=== PATIENT | female | born 1960 | race Caucasian/White ===

== ENCOUNTER 2019-08-10 08:25 | Outpatient (CLI) | payer OTHER ==
--- NOTE | 2019-08-10 11:57 | Diagnostic Imaging Report ---
PATIENT MR#: [id number] PATIENT PATIENT NAME: RUTH ORLANDO DATE OF : 1960 REFERRING PHYSICIAN: Leslie Butcher EXAM DATE: 08/10/2019 ACCESSION NUMBER: [id number] EXAM DESCRIPTION: CHEST 2VIEW HISTORY: COUGH AND SHORTNESS OF BREATH X1 WEEK . COMPARISON: None provided. CHEST RADIOGRAPH, FRONTAL AND LATERAL: Upper mediastinum: Not widened. Heart: No cardiomegaly. Lungs: No lobar infiltrate, pulmonary edema, pneumothorax or significant effusion. Skeleton: No acute findings. IMPRESSION: No acute thoracic process. Read by: Dr. Christiano Guthrie Transcribed by: Christiano Guthrie Transcribed Date: 08/10/2019 11:57:14 AM Electronically signed by: Dr. Christiano Guthrie Date signed: 08/10/2019 11:57:21 AM
== END 2019-08-10 08:35 ==
LOC: RAD 08:25
PROVIDERS: ATTEND Nurse Practitioner Family
DX: R05 Cough (principal); R06.02 Shortness of breath
CPT/HCPCS: 71046